=== PATIENT | female | born 1975 | race Caucasian/White ===

== ENCOUNTER → 2022-02-16 | Outpatient (CLI) | payer BC | LOC: M WHC 14:55 | PROVIDERS: ATTEND Physician Assistant Medical | DX: Z12.31 Encounter for screening mammogram for malignant neoplasm of breast (principal); N63.12 Unspecified lump in the right breast, upper inner quadrant; N63.15 Unspecified lump in the right breast, overlapping quadrants; N63.22 Unspecified lump in the left breast, upper inner quadrant; R92.1 Mammographic calcification found on diagnostic imaging of breast ==

== ENCOUNTER → 2022-03-02 | Outpatient (CLI) | payer BC | LOC: M WHC 13:02 | PROVIDERS: ATTEND Physician Assistant Medical | DX: D49.3 Neoplasm of unspecified behavior of breast (principal); R92.2 Inconclusive mammogram | CPT/HCPCS: 76642; 77065; G0279 ==

== ENCOUNTER → 2022-03-09 | Outpatient (CLI) | payer BC ==
[~2022-03-09] MED LIST: **SFHN** LIDOCAINE 1% MDV 20ML VIAL ONE; **SFHN** SODIUM BICARBONATE 8.4% 10MEQ 10ML VIAL ONE; CALT1TAB PO; CVS1CAP2 PO; FLUT1BLS5 IH; LEVOTAB10 PO; LISI10TA22 PO; MAGN400C PO; ONE-1TAB PO; SING5CHW23 PO; VENTAER INH
[2022-03-09 14:19] VITALS: BP 122/78
== END ==
LOC: M WHCPRO 12:13
PROVIDERS: ATTEND Physician Assistant Medical
DX: R92.8 Other abnormal and inconclusive findings on diagnostic imaging of breast (principal); N63.20 Unspecified lump in the left breast, unspecified quadrant

== ENCOUNTER → 2022-09-09 | Outpatient (CLI) | payer BC ==
[~2022-09-09] MED LIST changes: -**SFHN** LIDOCAINE 1% MDV 20ML VIAL ONE; -**SFHN** SODIUM BICARBONATE 8.4% 10MEQ 10ML VIAL ONE
== END ==
LOC: M WHC 09:52
PROVIDERS: ATTEND Physician Assistant Medical
DX: R92.1 Mammographic calcification found on diagnostic imaging of breast (principal)
CPT/HCPCS: 77065; G0279

== ENCOUNTER → 2022-09-23 | Outpatient (REF) | payer BC | LOC: M SFHCWAGY 15:16 | PROVIDERS: ATTEND Nurse Practitioner Family | DX: Z01.419 Encounter for gynecological examination (general) (routine) without abnormal findings (principal); Z77.9 Other contact with and (suspected) exposures hazardous to health | CPT/HCPCS: 87624; G0123 ==